=== PATIENT | male | born 1960 | race American Indian/Alaskan Native ===

== ENCOUNTER 2024-10-13 09:28 | Day surgery (SDC) | payer MEDICAID ==
[~2024-10-13 09:28] MED LIST: Albuterol 0.083% 2.5 MG/3 ML Neb Soln NEB PRN; Bupivacaine 0.5%/EPINEPHrine 1:200,000 30 ML SDV ONE; HYDROmorphone 1 MG/ML Syringe IVPUSH PRN; Metoclopramide 10 MG/2 ML SDV IVPUSH PRN; Morphine 2 MG/ML SYRINGE IVPUSH PRN; Naloxone 0.4 MG/ML SDV IVPUSH PRN; Ondansetron 4 MG/2 ML SDV IVPUSH PRN; Phenylephrine HCl In 0.9% NaCl 1 MG/10 ML Syringe IVPUSH PRN; ceFAZolin 2 GM in Water For Injection, Sterile 20 ML IVPUSH ONE; fentaNYL 50 MCG/ML SDV IVPUSH PRN
[2024-10-13] MEDS: Lactated Ringers 1,000 ML IV SCH (10:04)
[2024-10-13] MEDS ORDERED: Lidocaine 2% 5 ML SDV ONE (10:11)
[2024-10-13] MEDS ORDERED: Ropivacaine 0.5% 5 MG/ML 30 ML SDV ONE (10:11)
[2024-10-13] MEDS ORDERED: dexmedeTOMIDine HCl 200 MCG/2 ML SDV ONE (10:13)
[2024-10-13] MEDS ORDERED: fentaNYL 100 MCG/2 ML SDV ONE (10:15)
[2024-10-13] MEDS ORDERED: Propofol 200 MG/20 ML SDV ONE (10:15)
[2024-10-13] MEDS ORDERED: fentaNYL 250 MCG/5 ML SDV ONE (11:27)
[2024-10-13] MEDS ORDERED: ceFAZolin 2 GM Vial ONE ×2 (11:31→12:16)
[2024-10-13] MEDS ORDERED: Ketamine HCL/NACL, ISO-OSM 50 MG/5 ML Syringe ONE (11:33)
[2024-10-13] MEDS ORDERED: Ondansetron 4 MG/2 ML SDV ONE (12:16)
[2024-10-13] MEDS ORDERED: Ketorolac 30 MG/ML SDV ONE (12:16)
== END 2024-10-13 13:15 | disposition home or self-care (01) ==
LOC: MW.SDS 09:28
PROVIDERS: ATTEND Orthopaedic Surgery
DX: S83.241A Other tear of medial meniscus, current injury, right knee, initial encounter (principal); J45.909 Unspecified asthma, uncomplicated; F17.210 Nicotine dependence, cigarettes, uncomplicated; Z79.899 Other long term (current) drug therapy; X58.XXXA Exposure to other specified factors, initial encounter
CPT/HCPCS: 29881; J0690; J1885; J2003; J2405; J2704; J2795; J3010; J7120; 01400; 64447; J0655; J3490